=== PATIENT | male | born 1945 | race Caucasian/White ===

== ENCOUNTER 2020-04-05 09:18 | Emergency (ER) | payer OTHER, SELFPAY ==
[2020-04-05] VITALS (10 sets, daily range): BP systolic 159–201; BP diastolic 69–95; PULSE 74–90; RESP 15–30; TEMP 36.6; O2SAT 89–94; BMI 43.0
--- NOTE | 2020-04-05 09:29 | XR_ITS ---
WS: [id number] XR chest 1V portable [id number] REASON FOR EXAM: chest pain FINDINGS: Cardiomegaly is noted. Sternotomy changes are seen with coronary bypass findings. The lung sánchez show scattered interstitial changes but no active pneumonias, pleural effusion, pulmo nary edema, no mass effect. The hilum and apices normal. XR/XR chest 1V portable [id number] IMPRESSION: Cardiomegaly Coronary bypass changes No active infiltrates.
--- NOTE | 2020-04-05 09:30 | ECG_ITS ---
Measurements Intervals [place] Rate: 81 P: -2 [place]: 244 QRS: 5 QRSD: 81 T: 82 QT: 357 QTc: 415 SINUS RHYTHM WITH FIRST DEGREE AV BLOCK NONSPECIFIC T-WAVE ABNORMALITY Compared to ECG 09/22/2016 09:36:37 First degree AV block now present T-wave abnormality still present Electronically Signed On 04-05-2020 17:58:54 CDT by Vero Arroyo M.D. [id number]
--- NOTE | 2020-04-05 09:32 | W.ED.CHESTPA ---
HPI - Chest Pain General: Chief Complaint: Chest Pain Stated Complaint: CP Time Seen by Provider: 04/05/20 09:29 History of Present Illness: HPI narrative: This patient is a 74-year-old male who presents today with chest pain. He reports that the chest pain has been going on constantly for day and a half without any episodes of pain-free times. He does not relate the pain to any exertion. He does have pain that radiates down his left arm and in his left shoulder and that is somewhat positional. He has some shortness of breath. He said that is chronic but it is a little bit worse in the past few days. He admits to not taking his fluid pills because they make him go to the bathroom too much. He has had open heart surgery and had a stent placed 9 months later. That was in 2006 and he has not had to have any further interventions. He is a diabetic. 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 He notes that putting his arm in a sling seems to help the pain in his shoulder. He does describe pain that goes through his chest from the front to back on the left side in the area of his heart. He describes pain up under his left shoulder blade. He denies any activities that might have injured his arm or shoulder. Associated symptoms: Reports dyspnea; Deny abdominal pain, fever(s), nausea or vomiting Review of Systems General: Reports: 10 or more systems reviewed and unremarkable except in HPI and below Const: Denies: fever(s), chills, fatigue or malaise Eyes: Denies: change in vision ENMT: Denies: odynophagia Card: Reports: chest pain and swelling of feet/ankles Resp: Reports: dyspnea; Denies: productive cough or non-productive cough GI: Denies: abdominal pain, nausea or vomiting : Denies: flank pain Musc: Reports: extremity pain (Left shoulder, left arm); Denies: neck pain or back pain Skin/Breast: Denies: rash Neuro: Denies: headache(s), numbness in extremities or weakness in extremities Twan/Lymph: Denies: easy bruising or easy bleeding PFSH ED PFSH: Social History Smoking and tobacco status: former smoker Physical Exam Const: COMMON NORMALS: no acute distress, patient oriented x3, no limitations and alert GENERAL APPEARANCE: cooperative and comfortable NUTRITIONAL APPEARANCE: obese morbidly obese HENMT: HEAD & SCALP: normal to inspection FACE & SINUS: normal facial exam Eye: GENERAL EYE: appearance normal, both eyes and all related structures Neck/C-Spine: COMMON NORMALS: supple, no meningeal signs and no JVD Chest: COMMONS NORMALS: normal inspection of the chest Resp: COMMON NORMALS: normal respiratory effort, No use of accessory muscles and clear to auscultation bilaterally AUSCULTATION: clear to auscultation bilaterally Cardio: COMMON NORMALS: no JVD, regular rate, regular rhythm and No murmurs present (Cardio) RATE: regular rate RHYTHM: regular rhythm GI: COMMON NORMALS: Normal to inspection, nondistended, normoactive bowel sounds present, Soft to palpation and non-tender INSPECTION: Yes normal to inspection AUSCULTATION: Yes normoactive bowel sounds PALPATION: Yes Soft to palpation Back/Pelvis: COMMON NORMALS: thoracic and lumbar spine normal to inspection Extremity: COMMON NORMALS: normal to inspection GENERAL: Yes edema (+2 pitting edema, bilateral extremities lower) LEFT UPPER EXTREMITY: Yes shoulder joint (Painful range of motion) Neuro: COMMON NORMALS: patient oriented x3, moves all extremities, no focal motor deficits and no sensory deficits noted SENSORIUM/ORIENTATION: Yes alert MENINGEAL SIGNS: Yes no meningeal signs Psych: COMMON NORMALS: mental status grossly normal, cooperative and normal affect Skin: COMMON NORMALS: no rashes or lesions noted and turgor normal GENERAL SKIN EXAM: no rashes or lesions noted and turgor normal Course ED course: Patient got no relief of his pain with a nitro paste ordered. He did get relief of his pain with morphine. His EKG is unchanged from prior. Repeat EKG was also unchanged. Troponins were both negative with a negative delta. I did get a CT scan of his chest given the pain up under his shoulder blade. This was negative for PE, negative for pneumonia, negative for aortic abnormality. It does suggest some fluid overload. His clinical exam is also consistent with fluid overload given his edema in his legs and increasing shortness of breath. His chest pain was very atypical and that it was constant for a day and a half, not worsened by exertion or activity, was worsened by certain positions of his arm. I suspect it is muscular however he certainly does have multiple risk factors for cardiac disease. I think he is low enough risk to go home but encouraged him to follow-up with his computer information systems professor. Vital Signs: Vital signs: Vital Signs Temperature 97.8 F 04/05/20 09:24 Pulse Rate 74 04/05/20 12:44 Respiratory Rate 16 04/05/20 12:44 Blood Pressure 168/78 04/05/20 12:44 Pulse Oximetry 93 04/05/20 12:44 MDM - Chest Pain MDM Narrative: Medical decision making narrative: 74-year-old diabetic with a history of CAD presenting with chest pain. Standard work-up as well as chest CT to rule out PE or aortic pathology. He also has signs of fluid overload and admits to not taking his diuretic. Given his atypical chest pain, negative EKGs, negative troponins he is probably low enough risk to go home safely. He will follow-up with his computer information systems professor and understands that what we have done today is only to rule out an active heart attack. He will also follow-up with his primary care doctor regarding pain in his shoulder and arm which could be radicular in origin. Lab Data: Labs: Lab Results 04/05/20 04/05/20 04/05/20 Range/Units 09:42 09:42 09:42 WBC 5.4 (4.0-10.0) 10^3/ uL RBC 4.90 (4.1-5.3) 10^6/u L Hgb 14.1 (11.7-16.6) g/dL Hct 43.1 (42.0-52.0) % MCV 88.0 (80-94) fL MCH 28.8 (28.0-34.0) pg MCHC 32.7 (30.0-36.0) g/dL RDW 13.2 (12.1-15.1) % Plt Count 141 (130-400) 10^3/c mm MPV 10.4 (7.4-10.4) fL Neut % (Auto) 70.0 % Lymph % (Auto) 14.7 % Coal % (Auto) 9.7 % Eos % (Auto) 4.5 % Baso % (Auto) 0.7 % Neut # (Auto) 3.8 (1.8-7.7) 10^3/u L Lymph # (Auto) 0.8 (0.8-4.8) 10^3/u L Coal # (Auto) 0.5 (0.2-0.9) 10^3/u L Eos # (Auto) 0.2 (0.0-0.8) 10^3/u L Baso # (Auto) 0.0 (0.0-0.1) 10^3/u L Nucleated RBC % (a uto) 0 % Nucleated RBCs # 0.0 /100WBC PT 13.10 (10.5-13.3) SECO NDS INR 0.96 (0.8-1.2) Sodium 144 (136-145) mmol/L Potassium 4.6 (3.5-5.1) mmol/L Chloride 102 (98-107) mmol/L Carbon Dioxide 28 (22-29) mmol/L Anion Gap 18.6 (5-19) BUN 24 H (8-23) mg/dL Creatinine 1.1 (0.7-1.2) mg/dL Glucose 121 H (65-115) mg/dL Calculated Osmolal ity 296 H (285-295) mOsm/k g Calcium 9.4 (8.5-10.5) mg/dL Total Bilirubin 0.4 (0.15-1.2) mg/dL AST 16 (0-40) U/L ALT 16 (0-41) U/L Alkaline Phosphata se 60 (40-130) IU/L Troponin T Baselin e (0-15) ng/L Troponin T 120 [place] (0-15) ng/L Delta Troponin T (0-10) ABS# NT-Pro-B Natriuret Pep (0-125) pg/mL Total Protein 6.3 L (6.6-8.7) g/dL Albumin 4.2 (3.5-5.2) g/dL Globulin 2.1 (1.3-4.6) g/dL Lipase 24 (13-60) U/L 04/05/20 04/05/20 04/05/20 Range/Units 09:42 09:42 11:45 WBC (4.0-10.0) 10^3/ uL RBC (4.1-5.3) 10^6/u L Hgb (11.7-16.6) g/dL Hct (42.0-52.0) % MCV (80-94) fL MCH (28.0-34.0) pg MCHC (30.0-36.0) g/dL RDW (12.1-15.1) % Plt Count (130-400) 10^3/c mm MPV (7.4-10.4) fL Neut % (Auto) % Lymph % (Auto) % Coal % (Auto) % Eos % (Auto) % Baso % (Auto) % Neut # (Auto) (1.8-7.7) 10^3/u L Lymph # (Auto) (0.8-4.8) 10^3/u L Coal # (Auto) (0.2-0.9) 10^3/u L Eos # (Auto) (0.0-0.8) 10^3/u L Baso # (Auto) (0.0-0.1) 10^3/u L Nucleated RBC % (a uto) % Nucleated RBCs # /100WBC PT (10.5-13.3) SECO NDS INR (0.8-1.2) Sodium (136-145) mmol/L Potassium (3.5-5.1) mmol/L Chloride (98-107) mmol/L Carbon Dioxide (22-29) mmol/L Anion Gap (5-19) BUN (8-23) mg/dL Creatinine (0.7-1.2) mg/dL Glucose (65-115) mg/dL Calculated Osmolal ity (285-295) mOsm/k g Calcium (8.5-10.5) mg/dL Total Bilirubin (0.15-1.2) mg/dL AST (0-40) U/L ALT (0-41) U/L Alkaline Phosphata se (40-130) IU/L Troponin T Baselin e 18 H (0-15) ng/L Troponin T 120 [place] 15.07 H (0-15) ng/L Delta Troponin T -2.93 L (0-10) ABS# NT-Pro-B Natriuret Pep 103 (0-125) pg/mL Total Protein (6.6-8.7) g/dL Albumin (3.5-5.2) g/dL Globulin (1.3-4.6) g/dL Lipase (13-60) U/L EKG Data^: EKG 1: EKG interpretation date: 04/05/20 EKG interpretation time: 09:32 Interpretation: Sinus rhythm of 81 with a first-degree AV block. VA interval is 244. Inverted T wave in aVL. Possibly some slight ST depression in V5 and V6 but this may also be due to a wavy baseline. Discharge Plan Discharge Patient Disposition: Home, Self-Care Clinical Impression: Chest pain Qualifiers: Chest pain type: unspecified Qualified Code(s): R07.9 - Chest pain, unspecified Acute shoulder pain Qualifiers: Laterality: left Qualified Code(s): M25.512 - Pain in left shoulder Condition: Stable Prescriptions: New hydrocodone-acetaminophen 5-325 mg tablet 1 tab PO Q6H PRN (Reason: pain) Qty: 14 RF: 0 No Action atorvastatin 80 mg Tablet 40 mg PO DAILY RF: 0 carvedilol 25 mg Tablet 25 mg PO BID RF: 0 Miralax 17 gram Powder In Packet 17 g PO DAILY RF: 0 aspirin 325 mg Tablet 325 mg PO DAILY RF: 0 Plavix 75 mg Tablet 75 mg PO DAILY RF: 0 amlodipine 5 mg Tablet 5 mg PO DAILY RF: 0 omeprazole 40 mg Capsule,Delayed Release(Dr/Ec) 40 mg PO DAILY RF: 0 Novolog U-100 Insulin aspart 100 unit/mL Solution See Rx Instructions .ROUTE .COMPLEX RF: 0 pantoprazole 40 mg Tablet,Delayed Release (Dr/Ec) 40 mg PO DAILY RF: 0 Nitrostat 0.4 mg Tablet, Sublingual 0.4 mg SUBLINGUAL Q5M PRN (Reason: Chest Pain) RF: 0 folic acid 1 mg Tablet 1 mg PO DAILY RF: 0 gabapentin 100 mg Capsule 100 mg PO DAILY RF: 0 fluticasone propionate 50 mcg/actuation [place]ity,Suspension 2 spray INTRANASAL DAILY RF: 0 finasteride 5 mg Tablet 5 mg PO DAILY RF: 0 Vitamin D3 50 mcg (2,000 unit) Capsule 50 mcg PO DAILY RF: 0 Fish Oil 1,000 mg (120 mg-180 mg) Capsule 2 cap PO BID RF: 0 magnesium oxide 400 mg magnesium Tablet 400 mg PO BID RF: 0 glucagon 1 mg/0.2 mL Auto-Injector 1 mg SUBCUT PRN PRN (Reason: Hypoglycemia) RF: 0 torsemide 20 mg Tablet 20 mg PO DAILY RF: 0 cetirizine 10 mg Tablet 10 mg PO DAILY RF: 0 sertraline 100 mg Tablet 200 mg PO DAILY RF: 0 prednisolone acetate 1 % Drops,Suspension 1 drp OPHTHALMIC (EYE) TID RF: 0 tamsulosin 0.4 mg Capsule 0.4 mg PO DAILY RF: 0 lisinopril 10 mg Tablet 10 mg PO DAILY RF: 0 Discharge Orders: Discharge Order (Routine); Ordered 04/05/20 Ordered By: Sumaya Srivastava Referrals: Abhay Webber [Family Provider] - Riya Fischer MD [Primary Care Provider] - Discharge Diet: Low Salt Discharge Activity: Resume usual activity Patient Instructions: Chest Pain (ED) Activity Restrictions/Additional Instructions: Please take your fluid pill, torsemide as directed as your body is holding onto too much fluid right now. Use a sling if that is more comfortable but make sure to take your arm out of it and move your shoulder several times daily. Use the pain medicine as needed. Follow-up with your primary care provider for the shoulder and arm pain and discuss your chest pain with your computer information systems professor. Coding Level of Care Code ED Cpas for [facility] Phan
[2020-04-05 09:50] LABS: Basophils % 0.7 %; Eosinophils # 0.2 10^3/uL (0.0-0.8); Eosinophils % 4.5 %; Hematocrit 43.1 % (42.0-52.0); Hemoglobin 14.1 g/dL (11.7-16.6); Lymphocytes # 0.8 10^3/uL (0.8-4.8); Lymphocytes % 14.7 %; Mean Corpuscular HGB Conc 32.7 g/dL (30.0-36.0); Mean Corpuscular Hemoglobin 28.8 pg (28.0-34.0); Mean Platelet Volume 10.4 fL (7.4-10.4); Monocytes # 0.5 10^3/uL (0.2-0.9); Monocytes % 9.7 %; Neutrophils # 3.8 10^3/uL (1.8-7.7); Nucleated Red Blood Cells % 0 %; Platelet Count 141 10^3/cmm (130-400); Red Cell Distribution Width 13.2 % (12.1-15.1); White Blood Count 5.4 10^3/uL (4.0-10.0)
[2020-04-05 10:12] LABS: INR 0.96 (0.8-1.2)
[2020-04-05] MEDS: nitroglycerin 1 gm/inch oint Pkt 1 INCH TOPICAL (10:31)
[2020-04-05 10:49] LABS: Troponin(5th) Baseline 18 ng/L (0-15)
[2020-04-05 11:03] LABS: Alanine Aminotransferase 16 U/L (0-41); Albumin Level 4.2 g/dL (3.5-5.2); Alkaline Phosphatase 60 IU/L (40-130); Anion Gap 18.6 (5-19); Aspartate Amino Transferase 16 U/L (0-40); Blood Urea Nitrogen 24 mg/dL (8-23); Calcium 9.4 mg/dL (8.5-10.5); Carbon Dioxide 28 mmol/L (22-29); Chloride 102 mmol/L (98-107); Globulin 2.1 g/dL (1.3-4.6); Glucose 121 mg/dL (65-115); Lipase 24 U/L (13-60); Osmolality Calculated 296 mOsm/kg (285-295); Potassium 4.6 mmol/L (3.5-5.1); Sodium 144 mmol/L (136-145); Total Bilirubin 0.4 mg/dL (0.15-1.2); Total Protein 6.3 g/dL (6.6-8.7)
[2020-04-05 11:13] LABS: NT Pro B Type Natriuretic Pept 103 pg/mL (0-125)
--- NOTE | 2020-04-05 11:30 | ECG_ITS ---
Measurements Intervals [place] Rate: 73 P: 38 [place]: 235 QRS: 5 QRSD: 81 T: 88 QT: 384 QTc: 426 SINUS RHYTHM WITH FIRST DEGREE AV BLOCK NONSPECIFIC T-WAVE ABNORMALITY Compared to ECG 09/22/2016 09:36:37 First degree AV block now present T-wave abnormality still present Electronically Signed On 04-05-2020 18:03:04 CDT by Vero Arroyo M.D. [id number] f
--- NOTE | 2020-04-05 11:51 | CT_ITS ---
WS: [id number] CT CHEST ANGIOGRAPHY WITH REFORMATS HISTORY: CP, SOB TECHNIQUE: Contiguous axial images are obtained through the chest during arterial injection of intrav enous contrast. Images are reconstructed to evaluate the pulmonary arteries. MIP imaging also reviewe d. All CT scans at [facility] use at least one of these dose optimization techniques: aut omated exposure control; mA and/or kV adjustment per patient size (includes targeted exams where dose is matched to clinical indication); or iterative reconstruction. CONTRAST: Omnipaque 350; 95 mL IV. DLP: 536.74 mGy.cm COMPARISON: No similar studies. Adequate opacification of the pulmonary arteries through the segmental branches. No pulmonary embolis m is identified. Pulmonary artery size is normal. Beyond the segmental branches the opacification is limited. Heart size is normal. Mild atherosclerosis of aorta. Prior CABG. No pericardial or pleural effusions. Mild interstitial edema. Scattered ill-defined opacifications in the lower lung sánchez. Lobulated con solidation at the RIGHT lung base with a maximum diameter of 2.1 cm. There is an additional smaller m ore irregular consolidation along the superior LEFT lower lobe. No adenopathy. Mild hepatic steatosis. No adrenal mass. Gallbladder is well distended. No osteoblastic or osteolytic bone disease. CT/CT angio chest PE protcl [id number] IMPRESSION: 1. No pulmonary embolism through the segmental branches. 2. Prior CABG. 3. Mild fluid overload and interstitial edema. 4. Bilateral lower lobe opacifications. Differential includes pneumonia, pneum onitis and neoplasm. Due to their small size and appearance recommend follow-up chest CT after treatment in 3-4 weeks. These opacifications may resolve with t reatment for patient's fluid overload.
[2020-04-05 12:21] LABS: Troponin 5 2HR 15.07 ng/L (0-15)
[2020-04-05 12:23] LABS: Troponin 5 2HR Delta -2.93 ABS# (0-10)
[2020-04-05] MEDS: iohexol 350 mg/mL 100 mL Btl IV (12:24)
[2020-04-05] MEDS: morphine 4 mg/mL SDV 1 mL IVP (12:42)
--- NOTE | 2020-04-05 14:50 | PC.NURSE ---
20 g iv removed from right wrist tip intact. 18 g iv removed from right ac, tip intact. pressure dressing applied ot both sites
== END 2020-04-05 14:50 | disposition home or self-care (01) ==
PROVIDERS: Emergency Provider Emergency Medicine; Family Provider Internal Medicine; PCP Internal Medicine
DX: R07.9 Chest pain, unspecified (principal); M25.512 Pain in left shoulder; Z79.82 Long term (current) use of aspirin; Z79.02 Long term (current) use of antithrombotics/antiplatelets; Z79.4 Long term (current) use of insulin; Z87.891 Personal history of nicotine dependence
CPT/HCPCS: 12345; 36415; 71045; 71275; 80053; 83690; 83880; 84484; 85025; 85610; 93005; 96374; 99283; 99284; J2270; Q9967

== ENCOUNTER 2021-06-26 16:04 | Emergency (ER) | payer OTHER, MEDICARE, SELFPAY ==
[2021-06-26 16:24] VITALS: BP 161/64; PULSE 85; RESP 20; TEMP 37.2; O2SAT 88; BMI 40.8
--- NOTE | 2021-06-26 17:39 | ECG_ITS ---
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 Measurements Intervals [place] Rate: 82 P: -18 [place]: 255 QRS: 2 QRSD: 90 T: 53 QT: 357 QTc: 418 Interpretive Statements SINUS RHYTHM WITH FIRST DEGREE AV BLOCK WITH OCCASIONAL SUPRAVENTRICULAR PREMATURE COMPLEXES NONSPECIFIC ST & T-WAVE ABNORMALITY Compared to ECG 04/05/2020 11:23:46 No significant changes Electronically Signed On 06-27-2021 13:05:27 CDT by Inocente Juares M.D. [id number] f
--- NOTE | 2021-06-26 17:39 | XRR_ITS ---
PROCEDURE INFORMATION: Exam: XR Chest Exam date and time: 06/26/2021 5:39 PM Age: 75 years old Clinical indication: Shortness of breath; Additional info: Hypoxia TECHNIQUE: Imaging protocol: XR of the chest. Views: 1 view. COMPARISON: CR XR chest 1V portable [id number] 04/05/2020 9:39 AM FINDINGS: Lungs: Lungs are clear. Pleural spaces: There is no pleural effusion or pneumothorax. Heart/Mediastinum: Cardiomediastinal contours are unremarkable. Bones/joints: Sternal wires are present. There is no displacement to suggest sternal dehiscence. Bones are unremarkable. XR/XR chest 1V portable [id number] IMPRESSION: No acute findings.
--- NOTE | 2021-06-26 20:22 | W.ED.SKABFB ---
HPI - Skin/Abscess/Foreign Bdy General: Chief complaint: Skin/Abscess/Foreign Body Stated complaint: RLE BLISTERS: POPPING & BLEEDING Time Seen by Provider: 06/26/21 20:22 History of Present Illness: HPI narrative: Patient comes in today with complaints of sores to the bilateral lower extremities. Patient reports his legs started weeping and he developed blisters. Symptoms are worse on the right than the left. Patient denies any fever or chills. Patient does have a history of CHF and diabetes. Review of Systems General: Reports: 10 or more systems reviewed and unremarkable except in HPI and below Skin/Breast: Reports: other (Ulcers bilateral lower legs) PFS ED PFSH: Medical History Diabetes HTN (hypertension) Social History Smoking and tobacco status: former smoker Alcohol intake: never Physical Exam Const: COMMON NORMALS: no acute distress and patient oriented x3 GENERAL APPEARANCE: cooperative HENMT: COMMON NORMALS: normocephalic and Normal external nose present HEAD & SCALP: normal to inspection and normocephalic NOSE: Normal external nose present MOUTH: Normal oral and palatal mucosa present THROAT: posterior oropharynx normal Eye: GENERAL EYE: appearance normal, both eyes and all related structures Neck/C-Spine: COMMON NORMALS: full ROM Chest: COMMONS NORMALS: normal inspection of the chest Resp: COMMON NORMALS: normal respiratory effort EFFORT & INSPECTION: Yes able to speak in complete sentences Cardio: COMMON NORMALS: regular rate and regular rhythm RATE: regular rate RHYTHM: regular rhythm GI: COMMON NORMALS: non-tender Back/Pelvis: COMMON NORMALS: thoracic and lumbar spine normal to inspection Extremity: COMMON NORMALS: normal to inspection Neuro: COMMON NORMALS: patient oriented x3 and moves all extremities Psych: COMMON NORMALS: mental status grossly normal and cooperative Skin: NARRATIVE SKIN EXAM: Discoloration and blistering noted to the right lower extremity. Open ulcer noted to the anterior right lower leg. Blistering is also noted to the left lower leg with discoloration. Course Vital Signs: Vital signs: Vital Signs Temperature 99 F 06/26/21 16:24 Pulse Rate 85 06/26/21 16:24 Respiratory Rate 20 H 06/26/21 16:24 Blood Pressure 161/64 06/26/21 16:24 Pulse Oximetry 88 L 06/26/21 16:24 MDM - Skin/Abscess/Foreign Bdy MDM Narrative: Medical decision making narrative: Patient comes in today with weeping to the bilateral lower legs and an ulcer developing to the anterior right lower leg. On exam patient appears well. Lungs are decreased in the bases. Heart rate is regular. Skin is warm and dry. Vital signs are normal. Patient does have 88% O2 sat recorded on room air but on my evaluation he was 94-95%. Differential diagnosis includes exacerbation of CHF, diabetic ulcer, peripheral edema, stasis dermatitis. Laboratory values were unremarkable. BNP was normal. Chest x-ray was normal. Patient was redressed with zinc dressing to the bilateral lower extremities. Patient was started on doxycycline 100 mg twice a day. Patient was given 1 hydrocodone acetaminophen tablet in the emergency room for his discomfort. Patient was recommended to follow-up with primary care in one 1 week for recheck. Return to the ER for high fever or worsening symptoms. Lab Data: Labs: Lab Results 06/26/21 06/26/21 06/26/21 Range/Units 20:46 20:46 20:46 WBC 5.4 (4.0-10.0) 10^3/ uL RBC 4.98 (4.1-5.3) 10^6/u L Hgb 14.6 (11.7-16.6) g/dL Hct 45.7 (42.0-52.0) % MCV 91.8 (80-94) fl MCH 29.3 (28.0-34.0) pg MCHC 31.9 (30.0-36.0) g/dL RDW 13.5 (12.1-15.1) % Plt Count 128 L (130-400) 10^3/c mm MPV 10.5 H (7.4-10.4) fL Neut % (Auto) 68.2 % Lymph % (Auto) 13.9 % [place] % (Auto) 12.2 % Eos % (Auto) 4.8 % Baso % (Auto) 0.7 % Neut # (Auto) 3.67 (1.8-7.7) 10^3/u L Lymph # (Auto) 0.8 (0.8-4.8) 10^3/u L [place] # (Auto) 0.7 (0.2-0.9) 10^3/u L Eos # (Auto) 0.3 (0.0-0.8) 10^3/u L Baso # (Auto) 0.0 (0.0-0.1) 10^3/u L Nucleated RBC % (a uto) 0 % Nucleated RBCs # 0.0 /100WBC Sodium 141 (136-145) mmol/L Potassium 4.7 (3.5-5.1) mmol/L Chloride 103 (98-107) mmol/L Carbon Dioxide 31 H (22-29) mmol/L Anion Gap 11.7 (5-19) BUN 25 H (8-23) mg/dL Creatinine 0.8 (0.7-1.2) mg/dL GFR Calculation Not Reportable Glucose 101 (65-115) mg/dL Calculated Osmolal ity 297 H (285-295) mOsm/k g Lactic Acid 1.0 (0.5-2.2) mmol/L Calcium 8.9 (8.5-10.5) mg/dL Total Bilirubin 0.6 (0.15-1.2) mg/dL AST 11 (0-40) U/L ALT 11 (0-41) U/L Alkaline Phosphata se 65 (40-130) IU/L NT-Pro-B Natriuret Pep 86 (0-125) pg/mL Total Protein 6.8 (6.6-8.7) g/dL Albumin 3.9 (3.5-5.2) g/dL Globulin 2.9 (1.3-4.6) g/dL EKG Data^: EKG 1: Attestation: I personally reviewed and interpreted this EKG as follows: (2109, EKG shows sinus rhythm with a regular rate at 82 bpm. Occasional PVC is noted. No ST elevation is noted. No prior exams available for comparison at this time.) Discharge Plan Discharge Patient Disposition: Home Clinical Impression: Peripheral vascular disease Stasis dermatitis Qualifiers: Laterality: bilateral Qualified Code(s): I87.2 - Venous insufficiency (chronic) (peripheral) Condition: Stable Prescriptions: New doxycycline monohydrate 100 mg capsule 100 mg PO BID 7 Days Qty: 14 RF: 0 No Action mupirocin 2 % ointment 1 applic topical BID Qty: 22 RF: 0 atorvastatin 80 mg Tablet 40 mg PO DAILY RF: 0 carvedilol 25 mg Tablet 25 mg PO BID RF: 0 polyethylene glycol 3350 [Miralax] 17 gram Powder In Packet 17 g PO DAILY RF: 0 aspirin 325 mg Tablet 325 mg PO DAILY RF: 0 clopidogrel [Plavix] 75 mg Tablet 75 mg PO DAILY RF: 0 amlodipine 5 mg Tablet 5 mg PO DAILY RF: 0 omeprazole 40 mg Capsule,Delayed Release(Dr/Ec) 40 mg PO DAILY RF: 0 insulin aspart U-100 [Novolog U-100 Insulin aspart] 100 unit/mL Solution See Rx Instructions .ROUTE .COMPLEX RF: 0 pantoprazole 40 mg Tablet,Delayed Release (Dr/Ec) 40 mg PO DAILY RF: 0 nitroglycerin [Nitrostat] 0.4 mg Tablet, Sublingual 0.4 mg SUBLINGUAL Q5M PRN (Reason: Chest Pain) RF: 0 folic acid 1 mg Tablet 1 mg PO DAILY RF: 0 fluticasone propionate 50 mcg/actuation [place],Suspension 2 spray INTRANASAL DAILY RF: 0 finasteride 5 mg Tablet 5 mg PO DAILY RF: 0 cholecalciferol (vitamin D3) [Vitamin D3] 50 mcg (2,000 unit) Capsule 50 mcg PO DAILY RF: 0 omega 4-exs-cwo-fish oil [Fish Oil] 1,000 mg (120 mg-180 mg) Capsule 2 cap PO BID RF: 0 magnesium oxide 400 mg magnesium Tablet 400 mg PO BID RF: 0 glucagon 1 mg/0.2 mL Auto-Injector 1 mg SUBCUT PRN PRN (Reason: Hypoglycemia) RF: 0 torsemide 20 mg Tablet 20 mg PO BID RF: 0 cetirizine 10 mg Tablet 10 mg PO DAILY RF: 0 sertraline 100 mg Tablet 200 mg PO DAILY RF: 0 prednisolone acetate 1 % Drops,Suspension 1 drp OPHTHALMIC (EYE) TID RF: 0 tamsulosin 0.4 mg Capsule 0.4 mg PO DAILY RF: 0 lisinopril 10 mg Tablet 5 mg PO DAILY RF: 0 hydrocodone-acetaminophen 5-325 mg tablet 1 tab PO Q6H PRN (Reason: pain) Qty: 14 RF: 0 insulin aspart (niacinamide) 100 unit/mL Solution See Rx Instructions .ROUTE .COMPLEX RF: 0 nitroglycerin [Nitro Transdermal] 0.4 mg/hr Patch 24 Hour 0.4 mg transdermal PRN RF: 0 Discharge Orders: Discharge ED (Routine); Ordered 06/26/21 Ordered By: Bashir Tran Referrals: Treva Payan FNP [Primary Care Provider] - Discharge Diet: Usual diet Discharge Activity: Increase activity as tolerated Patient Instructions: Peripheral Vascular Disorders (ED), Opioid Safety Activity Restrictions/Additional Instructions: Home and elevate extremity. Take antibiotic doxycycline twice a day for next 7 days. Use zinc oxide wraps and change him every 3 days. Follow-up with primary care for further instructions. Patient may need referral to wound care management for persistent wounds. Coding Level of Care Code ED Astronautical Engineer for [facility] Fwd Exam Comprehensive
[2021-06-26 20:58] LABS: Basophils % 0.7 %; Eosinophils # 0.3 10^3/uL (0.0-0.8); Eosinophils % 4.8 %; Hematocrit 45.7 % (42.0-52.0); Hemoglobin 14.6 g/dL (11.7-16.6); Lymphocytes # 0.8 10^3/uL (0.8-4.8); Lymphocytes % 13.9 %; Mean Corpuscular HGB Conc 31.9 g/dL (30.0-36.0); Mean Corpuscular Hemoglobin 29.3 pg (28.0-34.0); Mean Corpuscular Volume 91.8 fl (80-94); Mean Platelet Volume 10.5 fL (7.4-10.4); Monocytes # 0.7 10^3/uL (0.2-0.9); Monocytes % 12.2 %; Neutrophils # 3.67 10^3/uL (1.8-7.7); Neutrophils % 68.2 %; Nucleated Red Blood Cells % 0 %; Platelet Count 128 10^3/cmm (130-400); Red Blood Count 4.98 10^6/uL (4.1-5.3); Red Cell Distribution Width 13.5 % (12.1-15.1); White Blood Count 5.4 10^3/uL (4.0-10.0)
[2021-06-26 21:51] LABS: Alanine Aminotransferase 11 U/L (0-41); Albumin Level 3.9 g/dL (3.5-5.2); Alkaline Phosphatase 65 IU/L (40-130); Anion Gap 11.7 (5-19); Aspartate Amino Transferase 11 U/L (0-40); Blood Urea Nitrogen 25 mg/dL (8-23); Calcium 8.9 mg/dL (8.5-10.5); Carbon Dioxide 31 mmol/L (22-29); Chloride 103 mmol/L (98-107); Globulin 2.9 g/dL (1.3-4.6); Glucose 101 mg/dL (65-115); NT Pro B Type Natriuretic Pept 86 pg/mL (0-125); Osmolality Calculated 297 mOsm/kg (285-295); Potassium 4.7 mmol/L (3.5-5.1); Sodium 141 mmol/L (136-145); Total Bilirubin 0.6 mg/dL (0.15-1.2); Total Protein 6.8 g/dL (6.6-8.7)
[2021-06-26] MEDS: doxycycline 100 mg Tablet PO (22:22)
[2021-06-26] MEDS: HYDROcodone-acetaminophen 5-325 mg Tablet 1 TAB PO (22:22)
[2021-06-26] MEDS: FUROsemide 10 mg/mL SDV 4mL 40 MG IM (22:22)
[2021-06-26 23:32] VITALS: BP 144/78; PULSE 81; RESP 18; O2SAT 98
== END 2021-06-26 23:21 | disposition home or self-care (01) ==
PROVIDERS: Emergency Provider Nurse Practitioner Family; PCP Nurse Practitioner
DX: I87.2 Venous insufficiency (chronic) (peripheral) (principal); I73.9 Peripheral vascular disease, unspecified; Z79.02 Long term (current) use of antithrombotics/antiplatelets; Z79.82 Long term (current) use of aspirin; Z79.4 Long term (current) use of insulin; E11.9 Type 2 diabetes mellitus without complications; I10 Essential (primary) hypertension; Z87.891 Personal history of nicotine dependence
CPT/HCPCS: 71045; 80053; 83605; 83880; 85025; 87040; 93005; 96372; 99283; J1940

== ENCOUNTER 2021-07-03 08:17 | Outpatient (CLI) | payer OTHER, SELFPAY | END 2021-07-03 08:18 | disposition home or self-care (01) | LOC: WOUND 08:21 | PROVIDERS: PCP Nurse Practitioner; Visit Provider Emergency Medicine | DX: I87.2 Venous insufficiency (chronic) (peripheral) (principal); L97.812 Non-pressure chronic ulcer of other part of right lower leg with fat layer exposed; E11.622 Type 2 diabetes mellitus with other skin ulcer; Z87.891 Personal history of nicotine dependence | CPT/HCPCS: 11042; 11045; 87070; 87077; 87176; 87186; 87205; G0463 ==

== ENCOUNTER 2021-07-10 08:43 | Outpatient (CLI) | payer OTHER, SELFPAY | END 2021-07-10 08:44 | disposition home or self-care (01) | LOC: WOUND 08:44 | PROVIDERS: PCP Nurse Practitioner; Visit Provider Emergency Medicine | DX: E11.622 Type 2 diabetes mellitus with other skin ulcer (principal); I87.2 Venous insufficiency (chronic) (peripheral); L97.812 Non-pressure chronic ulcer of other part of right lower leg with fat layer exposed; Z87.891 Personal history of nicotine dependence | CPT/HCPCS: 11042 ==

== ENCOUNTER 2021-07-17 09:18 | Outpatient (CLI) | payer OTHER, SELFPAY | END 2021-07-17 09:19 | disposition home or self-care (01) | LOC: WOUND 09:27 | PROVIDERS: PCP Nurse Practitioner; Visit Provider Emergency Medicine | DX: I87.2 Venous insufficiency (chronic) (peripheral) (principal); E11.622 Type 2 diabetes mellitus with other skin ulcer; L97.812 Non-pressure chronic ulcer of other part of right lower leg with fat layer exposed; Z87.891 Personal history of nicotine dependence | CPT/HCPCS: 11042 ==

== ENCOUNTER 2021-07-24 09:40 | Outpatient (CLI) | payer OTHER, SELFPAY | END 2021-07-24 09:41 | disposition home or self-care (01) | LOC: WOUND 09:41 | PROVIDERS: PCP Nurse Practitioner; Visit Provider Emergency Medicine | DX: Z09 Encounter for follow-up examination after completed treatment for conditions other than malignant neoplasm (principal); Z87.891 Personal history of nicotine dependence | CPT/HCPCS: 99212 ==

== ENCOUNTER 2021-07-31 10:34 | Outpatient (CLI) | payer OTHER, SELFPAY ==
--- NOTE | 2021-07-31 10:40 | USCV_ITS ---
Martin Rodríguez Age: 76 Gender: M : 1945 Exam Date: 07/31/2021 11:17 Ordering Phys: Sandra Cerda DO Technologist: Exam Location: [facility] – [place] Indication: HISTORY: Lower extremity swelling. Lower extremity edema. Erythema. PROCEDURES: Bilateral duplex Venous Insufficiency study of the Deep and Superficial systems was carried out according to normal protocol with the patient in supine positon for deep system and dependent position for the superficial system. FINDINGS: All deep veins demonstrated compressibility without evidence of intraluminal thrombus or increased echogenicity. Spectral analysis of Doppler signals demonstrates normal response to compression maneuvers indicating patency without obstruction. Reflux determinations were made with the patient in the dependent position, the weight being on the contralateral leg. Vein measurements and reflux times are listed below were applicable. No notable reflux was seen at this time. The veins were found to be easily compressible with spontaneous blood flow. The venous flow appears to be pulsatile Echo-free spaces were noted in the subcutaneous tissue bilaterally below the knee area CONCLUSIONS 1. No significant venous reflux in the above-mentioned veins 2. Relatively dilated superficial veins bilaterally 3. Features of high venous pressure 4. Features of fluid retention/edema in bilateral lower extremities Dr Inocente Juares MD [facility] (Electronically Signed) Final Date: 01 August 2021 13:22 S
== END 2021-07-31 10:35 | disposition home or self-care (01) ==
LOC: US 10:38
PROVIDERS: PCP Nurse Practitioner; Visit Provider Emergency Medicine
DX: L97.812 Non-pressure chronic ulcer of other part of right lower leg with fat layer exposed (principal); I87.2 Venous insufficiency (chronic) (peripheral)
CPT/HCPCS: 93970

== ENCOUNTER 2021-08-01 11:48 | Outpatient (CLI) | payer OTHER, SELFPAY ==
--- NOTE | 2021-08-01 11:55 | USCV_ITS ---
Martin Rodríguez Age: 76 Gender: M : 1945 Exam Date: 08/01/2021 12:13 Ordering Phys: Sandra Cerda DO Technologist: Jessica Mendoza Exam Location: [facility] – [place] Indication: BLE PAIN Risk Factors: Previous Vascular Surgery: RIGHT LEFT Waveform Velocity (cm/s) Velocity (cm/s) Waveform Triphasic 199.7 Iliac Prox 191.3 Triphasic Triphasic 191.4 Iliac Mid 208.1 Triphasic Triphasic 177.5 Iliac Distal 203.5 Triphasic Monophasic 212.3 SILVER CHASER 113.5 Monophasic Monophasic 169.6 SFA Prox 73.0 Monophasic Monophasic 115.8 SFA Mid 319.8 Monophasic Monophasic 96.6 SFA Dist 56.2 Monophasic Monophasic 71.8 POP 57.5 Monophasic Monophasic 55.9 PACK MASTER 74.6 Monophasic Monophasic DPA 52.8 Monophasic FINDINGS UNABLE TO OBTAIN JULIANNE'S Mild to moderate diffuse plaques in the iliac and femoral arteries bilaterally Elevated Doppler velocity in the mid superficial femoral artery on the left side with color flow turbulence Hypoechoic areas in the subcutaneous tissues bilaterally, especially in the below-knee areas CONCLUSIONS 1. Features of high-grade stenosis in the mid superficial femoral artery on the left side, likely the stenosis is greater than 70%. 2. Mild to moderate diffuse plaques in the iliac and femoral arteries bilaterally 3. Patent femoral, popliteal and infrapopliteal vessels bilaterally 4. ABIs were not obtained. 5. Features of fluid retention/edema, bilaterally. Dr Inocente Juares MD [facility] (Electronically Signed) Final Date: 01 August 2021 13:50 S
== END 2021-08-01 11:49 | disposition home or self-care (01) ==
LOC: US 11:50
PROVIDERS: PCP Nurse Practitioner; Visit Provider Emergency Medicine
DX: L97.812 Non-pressure chronic ulcer of other part of right lower leg with fat layer exposed (principal); I87.2 Venous insufficiency (chronic) (peripheral); M79.604 Pain in right leg; M79.605 Pain in left leg; I70.8 Atherosclerosis of other arteries
CPT/HCPCS: 93925

== ENCOUNTER → 2021-10-16 08:14 | Outpatient (BNVA) | payer OTHER, SELFPAY | PROVIDERS: PCP Nurse Practitioner; Visit Provider Internal Medicine | DX: E11.65 Type 2 diabetes mellitus with hyperglycemia (principal); E11.69 Type 2 diabetes mellitus with other specified complication; E78.5 Hyperlipidemia, unspecified; Z79.4 Long term (current) use of insulin | CPT/HCPCS: 99214 ==

== ENCOUNTER → 2022-01-09 09:44 | Outpatient (BNVA) | payer OTHER, SELFPAY | PROVIDERS: PCP Nurse Practitioner; Visit Provider Internal Medicine | DX: E11.65 Type 2 diabetes mellitus with hyperglycemia (principal); E11.69 Type 2 diabetes mellitus with other specified complication; E78.5 Hyperlipidemia, unspecified; Z87.891 Personal history of nicotine dependence; Z79.4 Long term (current) use of insulin | CPT/HCPCS: 99214 ==

== ENCOUNTER → 2022-01-21 09:49 | Outpatient (BNVA) | payer OTHER, SELFPAY | PROVIDERS: PCP Nurse Practitioner; Visit Provider Internal Medicine Cardiovascular Disease | DX: R07.9 Chest pain, unspecified (principal); I11.0 Hypertensive heart disease with heart failure; I50.9 Heart failure, unspecified; E11.69 Type 2 diabetes mellitus with other specified complication; E78.5 Hyperlipidemia, unspecified; R06.02 Shortness of breath; E11.65 Type 2 diabetes mellitus with hyperglycemia; E66.01 Morbid (severe) obesity due to excess calories; I25.10 Atherosclerotic heart disease of native coronary artery without angina pectoris; Z87.891 Personal history of nicotine dependence | CPT/HCPCS: 99204; 99205 ==

== ENCOUNTER 2022-02-03 12:58 | Outpatient (CLI) | payer OTHER, SELFPAY ==
[2022-02-03 13:47] LABS: Alanine Aminotransferase 14 U/L (0-41); Albumin Level 3.5 g/dL (3.5-5.2); Alkaline Phosphatase 61 IU/L (40-130); Anion Gap 13.2 (5-19); Aspartate Amino Transferase 13 U/L (0-40); Blood Urea Nitrogen 28 mg/dL (8-23); Calcium 9.4 mg/dL (8.5-10.5); Carbon Dioxide 28 mmol/L (22-29); Chloride 103 mmol/L (98-107); Globulin 3.1 g/dL (1.3-4.6); Glucose 112 mg/dL (65-115); NT Pro B Type Natriuretic Pept 138 pg/mL (0-125); Osmolality Calculated 294 mOsm/kg (285-295); Potassium 5.2 mmol/L (3.5-5.1); Sodium 139 mmol/L (136-145); Total Bilirubin 0.5 mg/dL (0.15-1.2); Total Protein 6.6 g/dL (6.6-8.7)
== END 2022-02-03 12:59 | disposition home or self-care (01) ==
LOC: LAB 13:00
PROVIDERS: PCP Nurse Practitioner; Visit Provider Internal Medicine Cardiovascular Disease
DX: E11.69 Type 2 diabetes mellitus with other specified complication (principal); E78.5 Hyperlipidemia, unspecified; I10 Essential (primary) hypertension
CPT/HCPCS: 80053; 83735; 83880

== ENCOUNTER → 2022-02-18 10:43 | Outpatient (BNVA) | payer OTHER, SELFPAY | PROVIDERS: PCP Nurse Practitioner; Visit Provider Nurse Practitioner Family | DX: I11.0 Hypertensive heart disease with heart failure (principal); I50.9 Heart failure, unspecified; I25.10 Atherosclerotic heart disease of native coronary artery without angina pectoris; I73.9 Peripheral vascular disease, unspecified; Z87.891 Personal history of nicotine dependence; Z79.82 Long term (current) use of aspirin | CPT/HCPCS: 99214 ==

== ENCOUNTER → 2022-03-17 11:19 | Outpatient (BNVA) | payer OTHER, SELFPAY | PROVIDERS: PCP Nurse Practitioner; Visit Provider Internal Medicine | DX: E11.65 Type 2 diabetes mellitus with hyperglycemia (principal); E11.69 Type 2 diabetes mellitus with other specified complication; E78.5 Hyperlipidemia, unspecified; Z79.4 Long term (current) use of insulin; Z87.891 Personal history of nicotine dependence | CPT/HCPCS: 99214 ==

== ENCOUNTER 2022-03-24 09:23 | Observation (INO) | payer OTHER, MEDICARE, SELFPAY ==
[2022-03-23 10:48] LABS: Basophils % 0.9 %; Eosinophils # 0.2 10^3/uL (0.0-0.8); Eosinophils % 4.9 %; Hematocrit 45.6 % (42.0-52.0); Hemoglobin 14.1 g/dL (11.7-16.6); Lymphocytes # 0.8 10^3/uL (0.8-4.8); Lymphocytes % 16.8 %; Mean Corpuscular HGB Conc 30.9 g/dL (30.0-36.0); Mean Corpuscular Hemoglobin 28.2 pg (28.0-34.0); Mean Corpuscular Volume 91.2 fl (80-94); Mean Platelet Volume 11.4 fL (7.4-10.4); Monocytes # 0.5 10^3/uL (0.2-0.9); Monocytes % 11.7 %; Neutrophils # 2.96 10^3/uL (1.8-7.7); Neutrophils % 65.5 %; Nucleated Red Blood Cells % 0 %; Platelet Count 152 10^3/cmm (130-400); Red Cell Distribution Width 14.5 % (12.1-15.1); White Blood Count 4.5 10^3/uL (4.0-10.0)
[2022-03-23 11:03] LABS: INR 1.01 (0.83-1.21); Prothrombin Time (Patient) 13.6 Seconds (12.0-15.1)
[2022-03-23 11:10] LABS: Anion Gap 11.4 (5-19); Blood Urea Nitrogen 16 mg/dL (8-23); Calcium 9.1 mg/dL (8.5-10.5); Carbon Dioxide 31 mmol/L (22-29); Chloride 103 mmol/L (98-107); Glucose 92 mg/dL (65-115); Osmolality Calculated 291 mOsm/kg (285-295); Potassium 5.4 mmol/L (3.5-5.1); Sodium 140 mmol/L (136-145)
[2022-03-24 06:00] VITALS: BP 170/74; PULSE 61; RESP 18; TEMP 36.6; O2SAT 95; BMI 44.0
[2022-03-24] MEDS: diphenhydrAMINE 50 mg Capsule PO (06:36)
--- NOTE | 2022-03-24 07:00 | XACV_ITS ---
Ht: 178 cm Wt: 139 kg BSA: 2.69 m2 Any Known Allergies: No known allergies Gender: Male : 1945 Exam Type: Invasive Peripheral Vascular Procedure(s): Procedure Description: Peripheral Cath Diagnostic Procedure Procedure Description: Abdominal aortic angiography Procedure Description: Lower extremities' angiography Exam Priority: Routine Abdominal Diagnostic Findings Distal abdominal aorta: Patent. Lower Extremity Diagnostic Findings INDICATION: 76 year old male with PMHx of CAD s/p CABGx 3 in 2006 and LAD drug eluting stent on 08/30/2007 after that in same year, diabetes mellitus since (CtB6J=5.8), hyperlipidemia, morbid obesity, SHERRI on BiPaP and former smoker quit in 1998. Has presented here after abnormal arterial Doppler with significant stenosis noted in the SFA on the left side. He has significant claudication symptoms and gets ulceration in lower extremities. Left common iliac artery: Patent Left internal iliac artery: Patent Left external iliac artery: Patent left common femoral artery: Patent Left profunda: Patent Left SFA: Moderate mid vessel disease: Left popliteal artery: Patent Left TP segment: Patent Below the knee patient has good three-vessel runoff to the foot. Right common iliac artery: Patent Right internal iliac artery: Patent Right external iliac artery: Patent Right common femoral artery: Patent Right SFA: Ostial vessel also significant 70 to 80% calcified lesion. Mid segment has severe 80 to 90% stenosis Right popliteal artery: Patent Right below the knee vessels are patent . Conclusions Severe ostial and mid Right SFA stenosis. Left lower extremity has patent vessels. Aggressive risk factor modification. Outpatient cardiology follow up. Recommendations Staged revascularization of the right SFA as our access is right common femoral artery today and can not access ipsilateral lower extremity vessels. Access Site Site: Right Femoral artery Sheath Size: 6 Fr Hemost... Method: Manual Compression Hemost... Success: Successful Procedure Details Findings Procedure Consent Obtained. Admit Source: Out Patient. Pre-Procedure Time Out. Does the consent match the physician's order: Yes. Identified patient by full name and date of as verbalized by the patient/guarantor. Accurate & Complete Informed Consent: Yes. Inpatient/Outpatient History & Physical on Chart: Yes. If H&P is completed, is and addenduem needed: No; If yes, is the addendum complete: N/A. Visualize and Verify Site with Patient/Guarantor: N/A. Relevant Radiology Images available: N/A. The risks, benefits, and alternatives of sedation and/or procedure were discussed by physician. The patient agrees to continue. Procedure started. Correct patient, site and procedure confirmed by cath team. PERRLA. Strong, equal hand principal consultant bilaterally. Lungs clear x 5 lobes. IV Site on Arrival: 18 gauge in the right anticubital. IV Fluids: 0.9% NaCl at KVO. 0 mL infused prior to lab associate. Pre Procedural Pulses: bilateral dorsalis pedis was 2+. Pre Procedural Pulses: bilateral posterior tibial was Doppled. Oxygen started at 5liters/min via nasal canula. right groin was prepped with chloroprep then draped in the usual sterile fashion. Baseline sample Acquired. HR: 61 BPM. Physician notified. Physician arrived. Physician scrubbed in. Time out performed with cath team. Lidocaine 1% infiltrated to the right groin. Arterial access obtained with micropuncture set. 5fr UF catheter in over wire. Abdominal aortogram performed in [place] @ 10 mL/sec for a total of 30 mL. Glidewire advanced through UF catheter. Glidewire out. Left leg selected and arteriogram with runoff performed @ 10 mL/sec for a total of 30 mL. DSA angiography performed to left leg below knee. DSA angiography performed of left ostial iliac. UF catheter out over the standard wire. Right leg selected and arteriogram with runoff performed through sheath @ 10 mL/sec for a total of 30 mL. Post Procedure: Pulses reassessed and unchanged. PERRLA. Strong, equal hand principal consultant bilaterally. No VTE prophylaxis required. Medication's Wasted: Heparin = 1000 unit. Total IV fluids: 34 mL. Post-op diagnosis: Severe mid right SFA stenosis. Complications: None. Estimated blood loss: 5mL-10mL. Responsiveness - Normal response to verbal stimuli; alert and oriented, PERRLA. Airway - Unaffected, no intervention required; spontaneous ventilation. Circulation: W/N/L, pulses unchanged. Nausea/Vomiting: N/A. Procedure completed. Patient transferred by bed to ICU. A Manual Compression was successful obtaining hemostatsis at the Right Femoral artery insertion site. Procedure Medications Start: 8:32 AM Stop: 8:32 AM Medication: Versed Amount: 1 mg Route: I.V. I, the attending physician, have reviewed and verified all procedure medications. Yes, all medications given per verbal order History/Risk Factors Hypertension: Yes Dyslipidemia: Yes Peripheral Arterial Disease (PAD): Yes Obesity: Yes Renal Disease: No Tobacco Use: Former Prior Interventions PCI: Yes CABG: Yes Valve Surgery: No Report Signatures Finalized by Davidson Mckeon MD on 04/04/2022 12:23 AM
--- NOTE | 2022-03-24 08:32 | P.HP_ITS ---
Same Day Surgery H&P Indication for Procedure/HPI DATE OF PROCEDURE: March 24, 2022 CHIEF COMPLAINT/INDICATIONFOR SURGICAL PROCEDURE: Non healing ulcers/ claudication PREOP DIAGNOSIS: Non healing ulcers/ claudication PLANNED PROCEDURE: Operation Date: 03/24/22 07:00 Proposed Procedures p Peripheral Diagnostic(Bilateral) - Davidson Mckeon M.D Possible percutaneous intervention 76 year old male here for evaluation and treatment of ASHD. He has PMHx of CAD s/p CABGx 3 in 2006 and LAD drug eluting stent on 08/30/2007 after that in same year, diabetes mellitus since (BoE7L=2.8), hyperlipidemia, morbid obesity, SHERRI on BiPaP and former smoker quit in . Has presented here after abnormal arterial Doppler with significant stenosis noted in the SFA on the left side. He has claudication symptoms and gets ulceration in lower extremities ROS CONSTITUTIONAL: Sleepy and drowsy HEENT: Normocephalic, atraumatic.[] RESPIRATORY: No cough, sputum, hemoptysis or wheezing.[] CARDIOVASCULAR: Has dyspnea on exertion GI: no nausea vomiting diarrhea. [] CONSUMER EDUCATOR: No numbness, tingling, weakness or loss of function in any part of the body. [] MUSCULOSKELETAL:Bilateral leg pain on exertion Medications/Allergies* Home Medications Medication Instructions Recorded Confirmed Type amlodipine 5 mg tablet 5 mg PO DAILY 04/05/20 03/23/22 History aspirin 325 mg tablet 325 mg PO DAILY 04/05/20 03/23/22 History atorvastatin 80 mg tablet 40 mg PO DAILY 04/05/20 03/23/22 History carvedilol 25 mg tablet 25 mg PO BID 04/05/20 03/23/22 History cetirizine 10 mg tablet 10 mg PO DAILY 04/05/20 03/23/22 History cholecalciferol (vitamin D3) 50 50 mcg PO DAILY 04/05/20 03/23/22 History mcg (2,000 unit) capsule (Vitamin D3) clopidogrel 75 mg tablet (Plavix) 75 mg PO DAILY 04/05/20 03/23/22 History finasteride 5 mg tablet 5 mg PO DAILY 04/05/20 03/23/22 History fluticasone propionate 50 2 spray INTRANASAL DAILY 04/05/20 03/23/22 History mcg/actuation nasal spray,suspension folic acid 1 mg tablet 1 mg PO DAILY 04/05/20 03/23/22 History glucagon 1 mg/0.2 mL subcutaneous 1 mg SUBCUT PRN PRN 04/05/20 03/23/22 History auto-injector lisinopril 10 mg tablet 5 mg PO DAILY 04/05/20 03/23/22 History magnesium oxide 400 mg PO BID 04/05/20 03/23/22 History nitroglycerin 0.4 mg sublingual 0.4 mg SUBLINGUAL Q5M PRN 04/05/20 03/23/22 History tablet (Nitrostat) omega 8-ghq-mac-fish oil 1,000 mg 2 cap PO BID 04/05/20 03/23/22 History (120 mg-180 mg) capsule (Fish Oil) pantoprazole 40 mg tablet,delayed 40 mg PO DAILY 04/05/20 03/23/22 History release polyethylene glycol 3350 17 gram 17 g PO DAILY 04/05/20 03/23/22 History oral powder packet (Miralax) prednisolone acetate 1 % eye 1 drp OPHTHALMIC (EYE) TID 04/05/20 03/23/22 History drops,suspension sertraline 100 mg tablet 200 mg PO DAILY 04/05/20 03/23/22 History tamsulosin 0.4 mg capsule 0.4 mg PO DAILY 04/05/20 03/23/22 History nitroglycerin 0.4 mg/hr 0.4 mg TRANSDERMAL PRN 06/26/21 03/23/22 History transdermal 24 hour patch insulin aspart U-100 100 unit/mL See Rx Instructions .ROUTE .COMPLEX 11/05/21 03/23/22 History subcutaneous solution (Novolog U-100 Insulin aspart) Allergies/Adverse Reactions Allergy/AdvReac Type Severity Reaction Status Date / Time No Known Allergies Allergy Verified 03/24/22 06:27 Current Medications: Generic Name Dose Route Start Last Admin Trade Name Freq PRN Reason Stop Dose Admin Sodium Chloride 1,000 mls @ 50 mls/hr 03/24/22 06:00 03/24/22 06:33 Sodium Chloride 0.9% IV 03/25/22 01:59 Not Given .Q20H ONE Pertinent History/Comorbid Conditions* Medical History (Updated 02/18/22 @ 12:03 by JACKIE Johnson) CAD (coronary artery disease) CHF (congestive heart failure), NYHA class III Diabetes HTN (hypertension) Surgical History (Updated 12/27/21 @ 09:06 by Luisito Seth MD) H/O heart bypass surgery H/O shoulder surgery H/O sinus surgery History of appendectomy Stented coronary artery Family History (Updated 07/14/21 @ 08:49 by Luisito Seth MD) Hypertension Social History Smoking and tobacco status: former smoker Alcohol intake: never Pertinent Exam Findings alert (Patient is drowsy but wakes up), oriented x 3, clear to auscultation bilaterally and regular rate & rhythm Conscious Sedation Assessment PATIENT ASSESSED PRIOR TO SEDATION, WITH NO CHANGE NOTED: Yes AIRWAY EVAL/ANESTHESIA PLAN: ASA IV, Monitored Anesthesia, Local Anesthesia, Risks, benefits & alternatives of sedation and/or procedure discussed and Patient agrees to continue as planned ADDITIONAL INFORMATION: Diminished pulses bilaterally Recommendations Surgery/Procedure today (Peripheral angiogram with possible intervention) Coding Level of Care Code Acute Night Filler for Salas Phan
--- NOTE | 2022-03-24 10:28 | PC.CHAP ---
Pastoral Care Encounter/Spiritual Assessment Type of Contact [] Declined crisis manager visit [] Patient/Family/Request visit [] Outpatient visit [] Follow-up visit [] Physician referral [] Code/Alert [x] Routine visit [] Staff referral [] Actively dying [x] Patient sleeping [] Family support [] [] Out of room [] Palliative care [] [] Receiving care in room [] Pre-surgical visit [] Trauma [] Long length of stay [x] ICU visit [] Other: Relational/Emotional Strength [] Patient feels connected with others/family/visitors/staff [] Distress [] Loneliness/isolation [] Abandonment Spirituality of Patient [] Person of Agata [] Attends Gnosticism of their Agata [] Believes in Prayer [] Reads Bible or Baptism materials [] There are Spiritual issues to be addressed Clothing Pattern Preparer Interventions [x] Prayer [] Active listening [] Non-anxious presence [] Spiritual/emotional support [] Crisis/trauma care [] Spiritual counseling [] Bereavement support [] Provided bereavement packet [] Provided Bible/devotional materials [] Provided toy/stuffed animal, coloring book to patient or family member [] Provided Communion [] Anointing/[place] [] Salvation [x] Completed spiritual assessment [] Other: Impact on Illness or Injury [] Angry [] Fearful [] Anxious [] Often cries [] Exhaustion [] Unable to work [] Unable to attend yazidi [] Unable to walk/stand [] Unable to read [] Unable to drive [] Unable to eat/drink [] Unable to sleep [] Unable to be with family [] Patient intubated [] Other: Summary Time spent with patient
--- NOTE | 2022-03-24 10:36 | PC.NURSE ---
Patient resting in bed in room. Right groin site clean dry and intact. No s/s of hematoma present. Called Dr. Mckeon and received verbal orders for a consistent carb diet for lunch.
--- NOTE | 2022-03-24 13:35 | PC.NURSE ---
Patient ambulated per Dr. Khan verbal orders. Site intact, dry, no s/s of hematoma after ambulation. Family at bedside. Awaiting Discharge orders
[2022-03-24 13:56] VITALS: BP 170/74; PULSE 61; RESP 18; TEMP 36.6; O2SAT 95
--- NOTE | 2022-03-24 14:29 | PC.NURSE ---
Patient's IV removed, catheter tip intact. All discharge instructions, restrictions, and follow up appointments given to patient and family. Verbalized understanding. Patient taken via w/c to main entrance with family present.
== END 2022-03-24 14:26 | disposition home or self-care (01) ==
LOC: ICU 09:27
PROVIDERS: Internal Medicine Cardiovascular Disease; Admitting Provider Internal Medicine; PCP Nurse Practitioner; Visit Provider Internal Medicine
DX: I70.213 Atherosclerosis of native arteries of extremities with intermittent claudication, bilateral legs (principal); I25.10 Atherosclerotic heart disease of native coronary artery without angina pectoris; Z95.1 Presence of aortocoronary bypass graft; E11.9 Type 2 diabetes mellitus without complications; E78.5 Hyperlipidemia, unspecified; E66.01 Morbid (severe) obesity due to excess calories; Z68.41 Body mass index [BMI] 40.0-44.9, adult; E66.9 Obesity, unspecified; Z87.891 Personal history of nicotine dependence; I11.0 Hypertensive heart disease with heart failure; I50.9 Heart failure, unspecified
CPT/HCPCS: 36415; 75625; 75716; 80048; 85025; 85610; 96361; 99152; 99153; C1769; C1887; C1894; G0378; J1644; J2250; J3010; J7030; Q0163; Q9967

== ENCOUNTER → 2022-03-31 08:58 | Outpatient (BNVA) | payer OTHER, SELFPAY | PROVIDERS: PCP Nurse Practitioner; Visit Provider Nurse Practitioner Family | DX: I73.9 Peripheral vascular disease, unspecified (principal); Z87.891 Personal history of nicotine dependence | CPT/HCPCS: 36415; 80048; 99213; 99214 ==

== ENCOUNTER → 2022-04-27 10:49 | Outpatient (BNVA) | payer OTHER, SELFPAY | PROVIDERS: PCP Family Medicine; Visit Provider Internal Medicine Cardiovascular Disease | DX: I25.10 Atherosclerotic heart disease of native coronary artery without angina pectoris (principal); I11.0 Hypertensive heart disease with heart failure; I50.9 Heart failure, unspecified; I73.9 Peripheral vascular disease, unspecified; E11.65 Type 2 diabetes mellitus with hyperglycemia; Z79.4 Long term (current) use of insulin; E66.01 Morbid (severe) obesity due to excess calories; Z68.41 Body mass index [BMI] 40.0-44.9, adult; E78.5 Hyperlipidemia, unspecified | CPT/HCPCS: 99214 ==

== ENCOUNTER → 2022-06-19 09:57 | Outpatient (BNVA) | payer OTHER, SELFPAY | PROVIDERS: PCP Family Medicine; Visit Provider Internal Medicine | DX: Z79.4 Long term (current) use of insulin (principal); Z87.891 Personal history of nicotine dependence; E11.65 Type 2 diabetes mellitus with hyperglycemia; E11.69 Type 2 diabetes mellitus with other specified complication; E78.5 Hyperlipidemia, unspecified | CPT/HCPCS: 99214 ==

== ENCOUNTER 2022-08-10 09:58 | Outpatient (CLI) | payer OTHER, SELFPAY ==
[2022-08-10 10:51] LABS: Estmated Average Glucose 154
[2022-08-10 11:04] LABS: Chol HDL Ratio 6.58 mg/dL (1.0-5.00); Cholesterol 237 mg/dL (0-200); HDL Cholesterol 36 mg/dL (60-100); Triglycerides 517 mg/dL (0-150)
[2022-08-10 11:40] LABS: LDL Cholesterol Direct 112 mg/dL (0-100)
== END 2022-08-10 09:59 | disposition home or self-care (01) ==
LOC: LAB 10:01
PROVIDERS: PCP Family Medicine; Visit Provider Internal Medicine
DX: E11.65 Type 2 diabetes mellitus with hyperglycemia (principal); E11.69 Type 2 diabetes mellitus with other specified complication; E78.5 Hyperlipidemia, unspecified
CPT/HCPCS: 36415; 80061; 83036; 83721

== ENCOUNTER → 2022-08-14 08:52 | Outpatient (BNVA) | payer OTHER, SELFPAY | PROVIDERS: PCP Family Medicine; Visit Provider Internal Medicine | DX: E11.65 Type 2 diabetes mellitus with hyperglycemia (principal); E11.69 Type 2 diabetes mellitus with other specified complication; E78.5 Hyperlipidemia, unspecified; Z79.4 Long term (current) use of insulin | CPT/HCPCS: 99214 ==

== ENCOUNTER → 2023-03-22 08:36 | Outpatient (BNVA) | payer OTHER, SELFPAY | PROVIDERS: PCP Family Medicine; Visit Provider Internal Medicine | DX: E11.65 Type 2 diabetes mellitus with hyperglycemia (principal); E11.69 Type 2 diabetes mellitus with other specified complication; E78.5 Hyperlipidemia, unspecified; I73.9 Peripheral vascular disease, unspecified; I25.10 Atherosclerotic heart disease of native coronary artery without angina pectoris; I50.9 Heart failure, unspecified; Z79.4 Long term (current) use of insulin | CPT/HCPCS: 99214 ==

== ENCOUNTER → 2023-09-06 07:46 | Outpatient (BNVA) | payer OTHER, SELFPAY | PROVIDERS: PCP Family Medicine; Visit Provider Internal Medicine | DX: I73.9 Peripheral vascular disease, unspecified (principal); B35.1 Tinea unguium; E11.628 Type 2 diabetes mellitus with other skin complications; E11.69 Type 2 diabetes mellitus with other specified complication; E78.5 Hyperlipidemia, unspecified; Z79.4 Long term (current) use of insulin; E11.65 Type 2 diabetes mellitus with hyperglycemia; E11.42 Type 2 diabetes mellitus with diabetic polyneuropathy; G62.9 Polyneuropathy, unspecified | CPT/HCPCS: 11721; 99203; 99214 ==

== ENCOUNTER → 2023-11-29 09:48 | Outpatient (BNVA) | payer OTHER, SELFPAY | PROVIDERS: PCP Family Medicine; Visit Provider Podiatrist Foot & Ankle Surgery | DX: B35.1 Tinea unguium (principal); I73.9 Peripheral vascular disease, unspecified; E11.65 Type 2 diabetes mellitus with hyperglycemia; G62.9 Polyneuropathy, unspecified; Z79.4 Long term (current) use of insulin | CPT/HCPCS: 11721 ==

== ENCOUNTER → 2024-01-05 10:32 | Outpatient (BNVA) | payer OTHER, SELFPAY | PROVIDERS: PCP Family Medicine; Visit Provider Internal Medicine | DX: E11.628 Type 2 diabetes mellitus with other skin complications (principal); E11.69 Type 2 diabetes mellitus with other specified complication; E78.5 Hyperlipidemia, unspecified; Z79.4 Long term (current) use of insulin | CPT/HCPCS: 99214 ==

== ENCOUNTER → 2024-07-04 10:53 | Outpatient (BNVA) | payer OTHER, SELFPAY | PROVIDERS: PCP Family Medicine; Visit Provider Internal Medicine | DX: E11.628 Type 2 diabetes mellitus with other skin complications (principal); E11.69 Type 2 diabetes mellitus with other specified complication; E78.5 Hyperlipidemia, unspecified; Z79.4 Long term (current) use of insulin | CPT/HCPCS: 99214 ==

== ENCOUNTER 2024-08-10 22:31 | Emergency (ER) | payer OTHER, SELFPAY ==
[2024-08-10 22:34] VITALS: BP 121/83; PULSE 79; RESP 24; TEMP 36.9; O2SAT 80; BMI 39.7
--- NOTE | 2024-08-10 22:34 | XRR_ITS ---
PROCEDURE INFORMATION: Exam: XR Chest Exam date and time: 08/10/2024 10:57 PM Age: 79 years old Clinical indication: Dyspnea and shortness of breath and other: Dx with covid 10 days ago, flu 7 days ago; Prior surgery; Surgery date: 6+ months; Surgery type: Cabg, stent TECHNIQUE: Imaging protocol: Radiologic exam of the chest. Views: 1 view. COMPARISON: CR XR chest 1V portable [id number] 06/26/2021 6:39 PM FINDINGS: Lungs: Prominent pulmonary vasculature. Hazy perihilar and bibasilar opacities. Pleural spaces: Blunting of the costophrenic angles is suggestive of small pleural effusions. Heart/Mediastinum: Cardiomegaly. Bones/joints: Unremarkable. Other findings: There are post-sternotomy changes and postoperative changes overlying the mediastinum. XR/XR chest 1V portable [id number] IMPRESSION: 1. Blunting of the costophrenic angles is suggestive of small pleural effusions. In combination with cardiomegaly and prominence of the pulmonary vasculature, findings raise concern for congestive heart failure. 2. Hazy perihilar bibasilar opacities may represent pneumonia versus pulmonary edema.
[2024-08-10 22:54] LABS: Basophils % 0.2 %; Eosinophils % 0.8 %; Hematocrit 36.9 % (37-53); Lymphocytes # 0.3 10^3/uL (0.8-4.8); Lymphocytes % 6.1 %; Mean Corpuscular Hemoglobin 29.1 pg (27-33); Mean Corpuscular Volume 91.1 fl (82-101); Mean Platelet Volume 10.5 fL (7.4-10.4); Monocytes # 0.4 10^3/uL (0.2-0.9); Monocytes % 8.4 %; Neutrophils # 4.43 10^3/uL (1.8-7.7); Neutrophils % 84.1 %; Nucleated Red Blood Cells % 0 %; Platelet Count 128 10^3/cmm (157-399); Red Blood Count 4.05 10^6/uL (3.85-5.65); White Blood Count 5.26 10^3/uL (3.29-11.43)
[2024-08-10 23:02] VITALS: BP 146/63; PULSE 74; RESP 24; O2SAT 89
[2024-08-10 23:21] LABS: Alanine Aminotransferase 27 U/L (0-41); Albumin Level 3.2 g/dL (3.5-5.2); Alkaline Phosphatase 78 U/L (40-130); Aspartate Amino Transferase 20 U/L (0-40); Blood Urea Nitrogen 26 mg/dL (8-23); Calcium 8.2 mg/dL (8.5-10.5); Carbon Dioxide 31 mmol/L (22-29); Chloride 99 mmol/L (98-107); Creatinine Clr Calc Pharmacy 91.4453; Globulin 2.8 g/dL (1.3-4.6); Glucose 298 mg/dL (65-115); Magnesium 1.9 mg/dL (1.7-2.3); NT Pro B Type Natriuretic Pept 3134 pg/mL (0-450); Osmolality Calculated 300 mOsm/kg (285-295); Sodium 137 mmol/L (136-145); Total Bilirubin 0.5 mg/dL (0.15-1.2)
[2024-08-10 23:30] VITALS: BP 142/110; PULSE 74; RESP 30; O2SAT 90
[2024-08-10] MEDS: FUROsemide 10 mg/mL SDV 4mL 40 MG IVP (23:40)
[2024-08-10] MEDS: ipratropium-albuterol 3 mL Neb INHALATION (23:43)
[2024-08-10 23:44] VITALS: PULSE 72; RESP 24; O2SAT 90
[2024-08-10 23:44] LABS: Lactic Sepsis W/Reflex 0.7 mmol/L (0.5-2.2)
[2024-08-10 23:52] VITALS: PULSE 74
[2024-08-10 23:52] LABS: Procalcitonin 0.07 ng/mL (0-0.5)
[2024-08-11] VITALS (13 sets, daily range): BP systolic 128–158; BP diastolic 50–96; PULSE 64–74; RESP 14–28; O2SAT 88–90
--- NOTE | 2024-08-11 00:06 | W.ED.SOB ---
HPI - SOB/Dyspnea General: Chief Complaint: Shortness of Breath/Dyspnea Stated Complaint: SOB Time Seen by Provider: 08/10/24 23:19 History of Present Illness: HPI Narrative: Patient comes to the ER via EMS with complaints of shortness of breath. Patient said he tested positive for COVID 10 days ago and the flu 7 days ago. 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 Patient is normally on 5 L of oxygen per nasal cannula at all times. Upon arrival to the ER he was satting 80% on room air we placed him on his home 5 L and bumped his saturation up to the mid 90s %. Related Data Home Medications Medication Instructions Recorded Confirmed amlodipine 5 mg tablet 5 mg PO DAILY SEE PHARMACY COMMENT 04/05/20 07/04/24 aspirin 325 mg tablet 325 mg PO DAILY 04/05/20 07/04/24 atorvastatin 80 mg tablet 40 mg PO DAILY 04/05/20 07/04/24 carvedilol 25 mg tablet 25 mg PO BID 04/05/20 07/04/24 cetirizine 10 mg tablet 10 mg PO DAILY 04/05/20 07/04/24 cholecalciferol (vitamin D3) 50 50 mcg PO DAILY 04/05/20 07/04/24 mcg (2,000 unit) capsule (Vitamin D3) clopidogrel 75 mg tablet (Plavix) 75 mg PO DAILY 04/05/20 07/04/24 finasteride 5 mg tablet 5 mg PO DAILY 04/05/20 07/04/24 fluticasone propionate 50 2 spray intranasal DAILY 04/05/20 07/04/24 mcg/actuation nasal spray,suspension folic acid 1 mg tablet 1 mg PO DAILY 04/05/20 07/04/24 glucagon 1 mg/0.2 mL subcutaneous 1 mg SUBCUT PRN PRN Hypoglycemia 04/05/20 07/04/24 auto-injector lisinopril 10 mg tablet 5 mg PO DAILY 04/05/20 07/04/24 magnesium oxide 400 mg PO BID 04/05/20 07/04/24 nitroglycerin 0.4 mg sublingual 0.4 mg sublingual Q5M PRN Chest 04/05/20 07/04/24 tablet (Nitrostat) Pain omega 9-ciz-drk-fish oil 1,000 mg 2 cap PO BID 04/05/20 07/04/24 (120 mg-180 mg) capsule (Fish Oil) pantoprazole 40 mg tablet,delayed 40 mg PO DAILY 04/05/20 07/04/24 release prednisolone acetate 1 % eye 1 drp ophthalmic (eye) TID 04/05/20 07/04/24 drops,suspension sertraline 100 mg tablet 200 mg PO DAILY 04/05/20 07/04/24 tamsulosin 0.4 mg capsule 0.4 mg PO DAILY 04/05/20 07/04/24 nitroglycerin 0.4 mg/hr 0.4 mg transdermal PRN 06/26/21 07/04/24 transdermal 24 hour patch insulin aspart U-100 100 unit/mL See Rx Instructions .Route .COMPLEX 11/05/21 07/04/24 subcutaneous solution (Novolog U-100 Insulin aspart) polyethylene glycol 3350 17 gram 17 g PO DAILY PRN 04/27/22 07/04/24 oral powder packet (Miralax) Previous Rx's Medication Instructions Recorded torsemide 20 mg tablet 20 mg PO BID #60 tabs 01/21/22 Diabetic Shoes with 3 inserts #1 ea 09/06/23 blood-glucose sensor (Dexcom G7 #9 ea 09/06/23 Sensor device) blood-glucose sensor (Guardian 4 #15 ea 08/09/24 Glucose Sensor device) blood-glucose transmitter #1 ea 08/09/24 (Guardian 4 Transmitter device) furosemide 40 mg tablet (Lasix) 40 mg PO DAILY #5 tabs 08/11/24 Allergies Allergy/AdvReac Type Severity Reaction Status Date / Time No Known Allergies Allergy Verified 07/04/24 08:29 Review of Systems General: Reports: 10 or more systems reviewed and unremarkable except in HPI and below PFSH ED PFSH: Medical History CHF (congestive heart failure), NYHA class III CAD (coronary artery disease) Diabetes HTN (hypertension) Surgical History H/O heart bypass surgery Stented coronary artery H/O shoulder surgery H/O sinus surgery History of appendectomy Family History Other Hypertension Social History (Reviewed 08/11/24 @ 00:07 by BLADIMIR Gill Smoking and tobacco/nicotine status: never used tobacco/nicotine Alcohol intake: never Physical Exam Const: COMMON NORMALS: no acute distress, average body habitus, patient oriented x3, no limitations, healthy appearing, alert and well nourished HENMT: COMMON NORMALS: normocephalic, atraumatic, hearing grossly normal bilaterally, external ears normal, Normal external nose present and moist oral mucous membranes HEAD & SCALP: normocephalic and atraumatic NOSE: Normal external nose present EXTERNAL EAR: Yes external ears normal Neck/C-Spine: COMMON NORMALS: no JVD Chest: COMMONS NORMALS: normal inspection of the chest and normal palpation of entire chest wall Resp: COMMON NORMALS: normal respiratory effort, No retractions and No use of accessory muscles; negative for clear to auscultation bilaterally (Decreased breath sounds bilaterally occasional wheeze) AUSCULTATION: not clear to auscultation bilaterally (Decreased breath sounds bilaterally occasional wheeze) Cardio: COMMON NORMALS: no JVD, regular rate, regular rhythm, S1 normal heart sound present, S2 normal heart sound present, No gallops present (Cardio), No clicks present (Cardio), No murmurs present (Cardio) and No rub (Cardio) RATE: regular rate RHYTHM: regular rhythm HEART SOUNDS: S1 normal heart sound present and S2 normal heart sound present GI: COMMON NORMALS: Normal to inspection, nondistended, normoactive bowel sounds present, Soft to palpation, non-tender, No hepatosplenomegaly present and no masses PALPATION: Yes Soft to palpation and Yes No hepatosplenomegaly present Neuro: COMMON NORMALS: patient oriented x3 SENSORIUM/ORIENTATION: Yes alert Course Vital Signs: Vital signs: Vital Signs Temperature 98.4 F 08/10/24 22:34 Pulse Rate 64 08/11/24 02:52 Respiratory Rate 21 H 08/11/24 02:30 Blood Pressure 130/96 08/11/24 02:52 Pulse Oximetry 90 08/11/24 02:52 Oxygen Delivery Me thod Nasal Cannula 08/11/24 01:30 Oxygen Flow Rate 6 08/10/24 23:44 MDM - SOB/Dyspnea Medical Decision Making Patient presents to the ER with shortness of breath, chest x-ray showed pneumonia versus pulmonary edema, and prominent pulmonary vasculature, white count was 5.2, BNP was 3134, patient was given 60 mg Lasix and diuresed over a liter while he was here. Patient continued to be on 5 L of oxygen and continued his saturation of 95+ percent. It was offered to the patient for admission for more IV diuretic to pull off even more fluid the patient was adamant about going home. Patient's family wanted the patient to stay with patient still wanted to go home. Patient was aware of the risks of going home such as worsening condition and having to be readmitted. Patient understood these risks and still wanted to go home. Patient be discharged home with 5 days of Lasix. In addition to his regular diuretic. Medical Records I reviewed the patient's medical records. Lab Data I reviewed the patient's lab results. 08/10/24 22:47 08/10/24:47 Labs/Radiology: Radiology Impressions Chest X-Ray 08/10/24 22:34 IMPRESSION: 1. Blunting of the costophrenic angles is suggestive of small pleural effusions. In combination with cardiomegaly and prominence of the pulmonary vasculature, findings raise concern for congestive heart failure. 2. Hazy perihilar bibasilar opacities may represent pneumonia versus pulmonary edema. Laboratory Results WBC 5.26 10^3/uL (3.29-11.43) 08/10/24: RBC 4.05 10^6/uL (3.85-5.65) 08/10/24 22:47 Hgb 11.80 g/dL (11.27-16.99) 08/10/24: Hct 36.9 % (37-53) L 08/10/24: MCV 91.1 fl (82-101) 08/10/24 22:47 MCH 29.1 pg (27-33) 08/10/24: MCHC 32.0 g/dL (30-55) 08/10/24: RDW 13.0 % (12.1-15.1) 08/10/24: Plt Count 128 10^3/cmm (157-399) L 08/10/24 22:47 MPV 10.5 fL (7.4-10.4) H 08/10/24: Neut % (Auto) 84.1 % 10/10/24 22:47 Lymph % (Auto) 6.1 % 08/10/24 22:47 [place] % (Auto) 8.4 % 08/10/24 22:47 Eos % (Auto) 0.8 % 08/10/24 22:47 Baso % (Auto) 0.2 % 08/10/24 22:47 Neut # (Auto) 4.43 10^3/uL (1.8-7.7) 08/10/24 22:47 Lymph # (Auto) 0.3 10^3/uL (0.8-4.8) L 08/10/24 22:47 [place] # (Auto) 0.4 10^3/uL (0.2-0.9) 08/10/24 22:47 Eos # (Auto) 0.0 10^3/uL (0.0-0.8) 08/10/24 22:47 Baso # (Auto) 0.0 10^3/uL (0.0-0.1) 08/10/24 22:47 Nucleated RBC % (auto) 0 % 08/10/24 22:47 Nucleated RBCs # 0.0 /100WBC 08/10/24 22:47 Sodium 137 mmol/L (136-145) 08/10/24 22:47 Potassium 5.0 mmol/L (3.5-5.1) 08/10/24 22:47 Chloride 99 mmol/L (98-107) 08/10/24 22:47 Carbon Dioxide 31 mmol/L (22-29) H 08/10/24 22:47 Anion Gap 12.0 (5-19) 08/10/24 22:47 BUN 26 mg/dL (8-23) H 08/10/24 22:47 Creatinine 0.9 mg/dL (0.7-1.2) 08/10/24 22:47 GFR Calculation Not Reportable 08/10/24 22:47 Glucose 298 mg/dL (65-115) H 08/10/24 22:47 Calculated Osmolality 300 mOsm/kg (285-295) H 08/10/24 22:47 Lactic Acid 0.7 mmol/L (0.5-2.2) 08/10/24 22:47 Calcium 8.2 mg/dL (8.5-10.5) L 08/10/24 22:47 Magnesium 1.9 mg/dL (1.7-2.3) 08/10/24 22:47 Total Bilirubin 0.5 mg/dL (0.15-1.2) 08/10/24 22:47 AST 20 U/L (0-40) 08/10/24 22:47 ALT 27 U/L (0-41) 08/10/24 22:47 Alkaline Phosphatase 78 U/L (40-130) 08/10/24 22:47 NT-Pro-B Natriuret Pep 3134 pg/mL (0-450) H 08/10/24 22:47 Total Protein 6.0 g/dL (6.6-8.7) L 08/10/24 22:47 Albumin 3.2 g/dL (3.5-5.2) L 08/10/24 22:47 Globulin 2.8 g/dL (1.3-4.6) 08/10/24 22:47 Procalcitonin 0.07 ng/mL (0-0.5) 08/10/24 22:47 Adenovirus (PCR) Not detected (NOT DETECT) 08/11/24 00:00 C. pneumoniae DNA (PCR) Not detected (NOT DETECT) 08/11/24 00:00 Coronavirus 229E (PCR) Not detected (NOT DETECT) 08/11/24 00:00 Human Metapneumovir PCR Not detected (NOT DETECT) 08/11/24 00:00 Influenza A (H1) PCR Not detected (NOT DETECT) 08/11/24 00:00 Influ A (H1/09) PCR Not detected (NOT DETECT) 08/11/24 00:00 Influenza A (H3) PCR Not detected (NOT DETECT) 08/11/24 00:00 Influenza Type A (PCR) Not detected (NOT DETECT) 08/11/24 00:00 Influenza Type B (PCR) Not detected (NOT DETECT) 08/11/24 00:00 M. pneumoniae (PCR) Not detected (NOT DETECT) 08/11/24 00:00 Parainfluenza 1 (PCR) Not detected (NOT DETECT) 08/11/24 00:00 Parainfluenza 2 (PCR) Not detected (NOT DETECT) 08/11/24 00:00 Parainfluenza 3 (PCR) Not detected (NOT DETECT) 08/11/24 00:00 Parainfluenza 4 (PCR) Not detected (NOT DETECT) 08/11/24 00:00 RSV Type A (PCR) Not detected (NOT DETECT) 08/11/24 00:00 RSV Type B (PCR) Not detected (NOT DETECT) 08/11/24 00:00 Entero/Rhino (PCR) Not detected (NOT DETECT) 08/11/24 00:00 SARS-CoV-2 (PCR) Detected (NOT DETECT) A 08/11/24 00:00 All radiology interpretation(s) finalized by discharge Discharge Plan Discharge Patient Disposition: Home Clinical Impression: Acute dyspnea CHF (congestive heart failure) Qualifiers: Heart failure type: unspecified Heart failure chronicity: acute on chronic Qualified Code(s): I50.9 - Heart failure, unspecified Condition: Stable Prescriptions: New furosemide [Lasix] 40 mg tablet 40 mg PO DAILY Qty: 5 0RF No Action torsemide 20 mg tablet 20 mg PO BID Qty: 60 6RF (DME) Dexcom G7 Sensor Device See Rx Instructions .ROUTE .MEDSUPPLY Qty: 9 0RF Rx Instructions: Change every 10days lidocaine HCl [Lidocaine Viscous] 2 % solution 1 applic topical ONCE Qty: 1 0RF (DME) Diabetic Shoes with 3 inserts See Rx Instructions .Route .MEDSUPPLY Qty: 1 0RF Rx Instructions: As directed to the [place] lidocaine HCl [Lidocaine Viscous] 2 % solution 1 applic topical ONCE Qty: 1 0RF (DME) Guardian 4 Glucose Sensor Device See Rx Instructions .Route Qty: 15 1RF Rx Instructions: [place] [place] [facility] [place] Guardian 4 Transmitter Device See Rx Instructions .Route Qty: 1 0RF Rx Instructions: As directed atorvastatin 80 mg Tablet 40 mg PO DAILY carvedilol 25 mg Tablet 25 mg PO BID aspirin 325 mg Tablet 325 mg PO DAILY clopidogrel [Plavix] 75 mg Tablet 75 mg PO DAILY amlodipine 5 mg Tablet 5 mg PO DAILY pantoprazole 40 mg Tablet,Delayed Release (Dr/Ec) 40 mg PO DAILY nitroglycerin [Nitrostat] 0.4 mg Tablet, Sublingual 0.4 mg SUBLINGUAL Q5M PRN (Reason: Chest Pain) folic acid 1 mg Tablet 1 mg PO DAILY fluticasone propionate 50 mcg/actuation [place],Suspension 2 spray INTRANASAL DAILY finasteride 5 mg Tablet 5 mg PO DAILY cholecalciferol (vitamin D3) [Vitamin D3] 50 mcg (2,000 unit) Capsule 50 mcg PO DAILY omega 0-vnf-lpr-fish oil [Fish Oil] 1,000 mg (120 mg-180 mg) Capsule 2 cap PO BID magnesium oxide 400 mg magnesium Tablet 400 mg PO BID glucagon 1 mg/0.2 mL Auto-Injector 1 mg SUBCUT PRN PRN (Reason: Hypoglycemia) cetirizine 10 mg Tablet 10 mg PO DAILY sertraline 100 mg Tablet 200 mg PO DAILY prednisolone acetate 1 % Drops,Suspension 1 drp OPHTHALMIC (EYE) TID tamsulosin 0.4 mg Capsule 0.4 mg PO DAILY lisinopril 10 mg Tablet 5 mg PO DAILY Rx Instructions: DOSE CHANGE insulin aspart U-100 [Novolog U-100 Insulin aspart] 100 unit/mL solution See Rx Instructions .ROUTE .COMPLEX Rx Instructions: PER CARB COUNT SS per pump polyethylene glycol 3350 [Miralax] 17 gram powder in packet 17 g PO DAILY PRN nitroglycerin 0.4 mg/hr Patch 24 Hour 0.4 mg transdermal PRN Rx Instructions: USE DIRECTED Discharge Orders: Discharge ED (Routine); Ordered 08/11/24 Ordered By: Abilio Umanzor Referrals: Yoon Casper MD [Primary Care Provider] - 1 week Patient Instructions: Dyspnea, Heart Failure (ED) Activity Restrictions/Additional Instructions: Your evaluation ER showed you may have a little bit too much fluid in your lungs. You are being given additional dose of Lasix here in the ER. You have been prescribed 40 mg of Lasix to take 1 pill daily on top of your normal diuretic for the next 5 days. This should help diurese your dry you out even more. Please follow-up with your failure proximal physician within the next 7 days for further evaluation and treatment. Coding Level of Care Code ED [employer] for [place] Phan
[2024-08-11 02:09] LABS: Adenovirus Not Detected (NOT DETECT); Chlamydia Pneumoniae Not Detected (NOT DETECT); Coronavirus 229E,HKU1,NL63,OC4 Not Detected (NOT DETECT); Human Metapneumovirus Not Detected (NOT DETECT); Human Rhinovirus/Enterovirus Not Detected (NOT DETECT); Influenza A Not Detected (NOT DETECT); Influenza A H1 Not Detected (NOT DETECT); Influenza A H1-2009 Not Detected (NOT DETECT); Influenza A H3 Not Detected (NOT DETECT); Influenza B Not Detected (NOT DETECT); Mycoplasma Pneumoniae Not Detected (NOT DETECT); Parainfluenza Virus Type 1 Not Detected (NOT DETECT); Parainfluenza Virus Type 2 Not Detected (NOT DETECT); Parainfluenza Virus Type 3 Not Detected (NOT DETECT); Parainfluenza Virus Type 4 Not Detected (NOT DETECT); Respiratory Syncytial Virus A Not Detected (NOT DETECT); Respiratory Syncytial Virus B Not Detected (NOT DETECT)
[2024-08-11 02:10] LABS: SARS-COV-2 Detected (NOT DETECT)
== END 2024-08-11 02:56 | disposition home or self-care (01) ==
PROVIDERS: Emergency Provider Emergency Medicine; PCP Family Medicine
DX: R06.00 Dyspnea, unspecified (principal); I11.0 Hypertensive heart disease with heart failure; I50.9 Heart failure, unspecified; Z79.02 Long term (current) use of antithrombotics/antiplatelets; Z79.82 Long term (current) use of aspirin; Z79.4 Long term (current) use of insulin; Z11.52 Encounter for screening for COVID-19; I25.10 Atherosclerotic heart disease of native coronary artery without angina pectoris; E11.9 Type 2 diabetes mellitus without complications
CPT/HCPCS: 36415; 71045; 80053; 83605; 83735; 83880; 84145; 85025; 87040; 87486; 87581; 87633; 94640; 96374; 99284; J1940